=== PATIENT | female | born 1995 ===

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

== ENCOUNTER 2017-05-02 15:02 | Emergency (ER) | payer MEDICAID ==
[2017-05-02 15:58] VITALS: O2SAT 98
[2017-05-02] MEDS ORDERED: Naproxen 550 mg Tab PO STA (16:09)
[2017-05-02] MEDS ORDERED: Naproxen 550 mg Tab PO ONE (16:26)
--- NOTE | 2017-05-02 17:11 | C.PDOC ---
History Of Present Illness 21 y/o female presents to the ER complaining of fever, cough, runny nose, and sore throat which began yesterday. Patient has no other physical complaints. Of note, the patient's son is being seen in the ER for similar symptoms. Time Seen by Provider: 05/02/17 15:38 Chief Complaint (Nursing): GI Problem History Per: Patient History/Exam Limitations: no limitations Onset/Duration Of Symptoms: Days Current Symptoms Are (Timing): Still Present Associated Symptoms: Fever, Sore Throat, Cough Severity: Moderate Past Medical History Reviewed: Historical Data, Nursing Documentation, Vital Signs Vital Signs: Last Vital Signs Temp 98.2 F 05/02/17 17:32 Pulse 78 05/02/17 17:32 Resp 16 05/02/17 17:32 BP 117/77 05/02/17 17:32 Pulse Ox 98 05/02/17 17:35 - Medical History PMH: No Chronic Diseases Surgical History: No Surg Hx Family History: States: No Known Family Hx - Social History Hx Tobacco Use: No Hx Alcohol Use: No Hx Substance Use: No - Immunization History Hx Tetanus Toxoid Vaccination: No Hx Influenza Vaccination: No Hx Pneumococcal Vaccination: No Review Of Systems Except As Marked, All Systems Reviewed And Found Negative. Constitutional: Positive for: Fever. Negative for: Chills ENT: Positive for: Nose Congestion, Throat Pain Cardiovascular: Negative for: Chest Pain, Palpitations Respiratory: Positive for: Cough. Negative for: Shortness of Breath Gastrointestinal: Negative for: Nausea, Vomiting, Abdominal Pain, Diarrhea Genitourinary: Negative for: Dysuria, Hematuria Physical Exam - Physical Exam Appears: Well, Non-toxic, No Acute Distress, Other (appears mildly uncomfortable ) Skin: Normal Color, Warm, No Rash Head: Normacephalic Eye(s): bilateral: Normal Inspection Nose: Normal Oral Mucosa: Moist Throat: Erythema (mild erythema), No Exudate, Other (no tonsillar swelling ) Neck: Supple Cardiovascular: Rhythm Regular Respiratory: Normal Breath Sounds, No Rales, No Rhonchi, No Wheezing Gastrointestinal/Abdominal: Normal Exam, Bowel Sounds, Soft, No Tenderness Extremity: Normal ROM Neurological/Psych: Oriented x3, Normal Motor, Normal Sensation ED Course And Treatment O2 Sat by Pulse Oximetry: 98 (RA) Pulse Ox Interpretation: Normal Progress Note: Influenza swab ordered and reviewed - (+) for Influenza A. Patient given PO Tamiflu, Naproxen, and Tessalon. Reevaluation Time: 17:15 Reassessment Condition: Improved (Patient reassessed, is resting comfortably and states she feels better. Rxs for Tamiflu, Tessalon and Naprosyn given. Patient instructed to follow up with PMD/clinic in 1-2 days, and understands she should return to ED if symptoms worsen.) Disposition Counseled Patient/Family Regarding: Studies Performed, Diagnosis, Need For Followup, Rx Given - Disposition Referrals: Robson Dow MD [Staff Provider] - Disposition: HOME/ ROUTINE Disposition Time: 17:20 Condition: STABLE Additional Instructions: FOLLOW UP WITH YOUR DOCTOR IN 1-2 DAYS USE MEDICATIONS DIRECTED RETURN TO ER IF SYMPTOMS WORSEN DRINK PLENTY OF FLUIDS Prescriptions: Benzonatate [Tessalon Perles] 100 mg PO BID PRN #15 sgl PRN Reason: Cough Naproxen 375 mg PO BID PRN #20 tablet PRN Reason: pain Oseltamivir Phosphate [Tamiflu] 75 mg PO BID #10 capsule Instructions: Influenza (ED) Forms: [facility] (Yakut), Work Excuse - Clinical Impression Clinical Impression: Influenza A - Scribe Statement The provider has reviewed the documentation as recorded by the Kathi Woo Provider Attestation: All medical record entries made by the Joeibjeny were at my direction and personally dictated by me. I have reviewed the chart and agree that the record accurately reflects my personal performance of the history, physical exam, medical decision making, and the department course for this patient. I have also personally directed, reviewed, and agree with the discharge instructions and disposition.
[2017-05-02 17:33] VITALS: BP 117/77; PULSE 78; RESP 16; TEMP 98.2
== END 2017-05-02 17:42 | disposition home or self-care (01) ==
LOC: C.ER 15:02
DX: J10.1 Influenza due to other identified influenza virus with other respiratory manifestations (principal)

== ENCOUNTER 2017-12-23 15:04 | Emergency (ER) | payer MEDICAID ==
--- NOTE | 2017-12-23 15:49 | C.PDOC ---
History Of Present Illness 22 y/o female with no PMHx presents to the ED for evaluation of chest pain and nausea, onset this morning. States after feeling nauseous, she had orange juice and went to work. Of note, patient works as a hotel and dining room cashier, using repetitive arm movements. Patient then developed intermittent parasternal discomfort, prompting her to come in to the ED. Otherwise she denies any numbness, tingling , dizziness, leg pain/swelling, SOB, palpitations, or radiation of pain. Time Seen by Provider: 12/23/17 15:30 Chief Complaint (Nursing): Dizziness/Lightheaded History Per: Patient History/Exam Limitations: no limitations Onset/Duration Of Symptoms: Hrs Current Symptoms Are (Timing): Still Present Past Medical History Reviewed: Historical Data, Nursing Documentation, Vital Signs Vital Signs: Last Vital Signs Temp 99.3 F 12/23/17 15:11 Pulse 80 12/23/17 15:11 Resp 16 12/23/17 15:11 BP 119/76 12/23/17 15:11 Pulse Ox 100 12/23/17 15:59 - Medical History PMH: No Chronic Diseases Surgical History: Cholecystectomy, Family History: States: Unknown Family Hx - Social History Hx Tobacco Use: No Hx Alcohol Use: No Hx Substance Use: No - Immunization History Hx Tetanus Toxoid Vaccination: No Hx Influenza Vaccination: No Hx Pneumococcal Vaccination: No Review Of Systems Except As Marked, All Systems Reviewed And Found Negative. Constitutional: Negative for: Fever Eyes: Negative for: Vision Change Cardiovascular: Positive for: Chest Pain. Negative for: Palpitations Respiratory: Negative for: Cough, Shortness of Breath, Wheezing Gastrointestinal: Positive for: Nausea. Negative for: Vomiting, Diarrhea Musculoskeletal: Negative for: Leg Pain Skin: Negative for: Rash Neurological: Negative for: Weakness, Numbness, Dizziness Physical Exam - Physical Exam Appears: Non-toxic, No Acute Distress, Other (Obese female) Skin: Normal Color, Warm, Dry, No Rash Head: Atraumatic, Normacephalic Eye(s): bilateral: Normal Inspection, PERRL, EOMI Oral Mucosa: Moist Neck: Normal ROM Chest: Symmetrical, Tenderness (Digitally reproducible pain on palpation of bilateral inferior parasternal areas) Cardiovascular: Rhythm Regular, No Murmur Respiratory: Normal Breath Sounds, No Rales, No Rhonchi, No Wheezing Gastrointestinal/Abdominal: Soft, No Tenderness, No Distention Extremity: Bilateral: Atraumatic, Normal Color And Temperature, Normal ROM Pulses: Left Radial: Normal, Right Radial: Normal Neurological/Psych: Oriented x3, Normal Speech Gait: Steady ED Course And Treatment - Laboratory Results Urine POC: Negative ECG: Interpreted By Me, Viewed By Me ECG Rhythm: Sinus Rhythm ECG Interpretation: Normal Rate From EC O2 Sat by Pulse Oximetry: 100 (RA) Pulse Ox Interpretation: Normal Medical Decision Making Medical Decision Making: Impression: Chest Pain Plan: --Urinalysis --Urine preg --EKG --Motrin 400 mg PO --Reassess and dispo u-preg neg exam normal Final Impression: parasternal costochondritis, works as a hotel and dining room cashier- repetative movements of anterior chest wall muscles likely causative. Disposition Doctor Will See Patient In The: Office Counseled Patient/Family Regarding: Studies Performed, Diagnosis - Disposition Referrals: [facility] [Outside] [facility] [Outside] [facility] [Outside] [facility] [employer] [Outside] Disposition: HOME/ ROUTINE Disposition Time: 15:48 Condition: GOOD Additional Instructions: motrin/Advil 400-600 mg every 6 hours for anterior chest wall discomfort normal work/duty test NEGATIVE today Instructions: Costochondritis Forms: [employer] (Vietnamese) - Clinical Impression Clinical Impression: Chest wall discomfort, Nausea - Scribe Statement The provider has reviewed the documentation as recorded by the Kathi Braga Provider Attestation: All medical record entries made by the Joeibjeny were at my direction and personally dictated by me. I have reviewed the chart and agree that the record accurately reflects my personal performance of the history, physical exam, medical decision making, and the department course for this patient. I have also personally directed, reviewed, and agree with the discharge instructions and disposition.
[2017-12-23 16:05] LABS: SQUAMOUS EPITHIAL 1 /hpf (0-5); URINE BILIRUBIN NEGATIVE (NEGATIVE); URINE BLOOD NEGATIVE (NEGATIVE); URINE CLARITY Clear (Clear); URINE COLOR Yellow (YELLOW); URINE GLUCOSE (UA) NORMAL (Normal); URINE HYALINE CAST 0-2 /lpf (0-2); URINE LEUKOCYTE ESTERASE NEG Leu/uL (Negative); URINE PROTEIN NEGATIVE (NEGATIVE); URINE UROBILINOGEN NORMAL mg/dL (0.2-1.0)
[2017-12-23 16:39] VITALS: O2SAT 100
[2017-12-23 16:44] VITALS: BP 97/61; PULSE 83; RESP 18; TEMP 99.1
--- NOTE | 2017-12-25 08:55 | CARD ---
APPROVED REPORT Date of service: 12/23/2017 EKG Measurement Heart [id number] MS 182P25 [id number] <Conclusion> Normal sinus rhythm Normal ECG
== END 2017-12-23 16:48 | disposition home or self-care (01) ==
LOC: C.ER 15:04
DX: R07.89 Other chest pain (principal); R11.0 Nausea

== ENCOUNTER 2018-08-26 22:41 | Emergency (ER) | payer MEDICAID ==
[2018-08-26 23:26] VITALS: BP 122/80; RESP 18; O2SAT 100
[2018-08-27] MEDS ORDERED: Amoxicillin-Clav 500-125 mg Tab PO ONE (00:29)
[2018-08-27] MEDS ORDERED: Amoxicillin-Clav 500-125 mg Tab PO STA (00:41)
--- NOTE | 2018-08-27 00:56 | C.PDOC ---
History Of Present Illness 23 year old female presents to the ED c/o right sided dental pain. Patient reports right upper 2nd molar pain that over the past 2 -3 days has been getting progressively worse. Patient aslo reports some swelling to the area. Patient denies fever, chills, headache, injury, fall, trauma. Time Seen by Provider: 08/26/18 23:27 Chief Complaint (Nursing): Dental Pain History Per: Patient History/Exam Limitations: no limitations Onset/Duration Of Symptoms: Days (2-3) Current Symptoms Are (Timing): Still Present Quality: Positive for: "Pain" Recent travel outside of the [place]: No Additional History Per: Patient Past Medical History Reviewed: Historical Data, Nursing Documentation, Vital Signs Vital Signs: Last Vital Signs Temp 98.4 F 08/26/18 23:23 Pulse 70 08/26/18 23:23 Resp 18 08/26/18 23:23 BP 122/80 08/26/18 23:23 Pulse Ox 100 08/26/18 23:23 - Medical History PMH: No Chronic Diseases Surgical History: Cholecystectomy, Family History: States: Unknown Family Hx - Social History Hx Tobacco Use: No Hx Alcohol Use: No Hx Substance Use: No - Immunization History Hx Tetanus Toxoid Vaccination: No Hx Influenza Vaccination: No Hx Pneumococcal Vaccination: No Review Of Systems Constitutional: Negative for: Fever, Chills Eyes: Negative for: Vision Change ENT: Positive for: Mouth Pain, Mouth Swelling. Negative for: Throat Pain Respiratory: Negative for: Cough, Shortness of Breath Gastrointestinal: Negative for: Nausea, Vomiting Musculoskeletal: Negative for: Neck Pain Skin: Negative for: Rash Neurological: Negative for: Headache Physical Exam - Physical Exam Appears: Non-toxic, No Acute Distress Skin: Normal Color, Warm, Dry, No Pale, No Rash Head: Atraumatic, Normacephalic Eye(s): bilateral: Normal Inspection Oral Mucosa: Moist Tongue: No Swelling Lips: No Swelling Teeth: Other (right upper 2nd molar cracked) Gingiva: Swelling (right upper second molar area), Tender (right upper second molar area), No Bleeding, No Abscess Throat: Normal, No Erythema, No Exudate Neck: Normal ROM, Supple Lymphatic: Normal Exam Chest: Symmetrical, No Tenderness Cardiovascular: Rhythm Regular Respiratory: No Accessory Muscle Use Neurological/Psych: Oriented x3, Normal Speech, Normal Cognition Gait: Steady ED Course And Treatment O2 Sat by Pulse Oximetry: 100 (ON RA) Pulse Ox Interpretation: Normal Medical Decision Making Medical Decision Making: Plan: * Augmentin 1 tab PO * Motrin 800 mg PO Patient advised to follow up with Dentist. Disposition - Disposition Referrals: [facility] [employer] [Outside] Wilbert Harding DMD [Staff Provider] - Disposition: HOME/ ROUTINE Disposition Time: 00:54 Condition: GOOD Additional Instructions: Follow up with the medical doctor within 1-2 days, Return if worsened. Prescriptions: Amoxicillin [Amoxil 500 mg Cap] 500 mg PO TID #29 cap Ibuprofen [Motrin Tab] 800 mg PO TID #20 tab Instructions: Tooth Decay, Adult (DC) Forms: [facility] [facility] (Bolivian), Work Excuse - Clinical Impression Clinical Impression: Dental caries - PA / [employer] / Resident Statement MD/DO has reviewed & agrees with the documentation as recorded. - Scribe Statement The provider has reviewed the documentation as recorded by the Scribe Aaron Peraza All medical record entries made by the Scribe were at my direction and personally dictated by me. I have reviewed the chart and agree that the record accurately reflects my personal performance of the history, physical exam, medical decision making, and the department course for this patient. I have also personally directed, reviewed, and agree with the discharge instructions and disposition.
[2018-08-27 01:08] VITALS: PULSE 62; TEMP 98.9
== END 2018-08-27 01:09 | disposition home or self-care (01) ==
LOC: C.ER 22:41
DX: K02.9 Dental caries, unspecified (principal)